=== PATIENT | male | born 1960 | race Caucasian/White ===

== ENCOUNTER → 2017-06-08 | Outpatient (CLI) | payer MEDICAID | LOC: CIMAGING 08:14 | PROVIDERS: ATTEND Family Medicine | DX: M51.86 Other intervertebral disc disorders, lumbar region (principal); M53.87 Other specified dorsopathies, lumbosacral region; M48.061 Spinal stenosis, lumbar region without neurogenic claudication | CPT/HCPCS: 72131-PO ==